=== PATIENT | male | born 1985 | race Caucasian/White ===

== ENCOUNTER → 2018-06-02 | Outpatient (CLI) | payer OTHER | LOC: FIMAGING 07:52 | PROVIDERS: ATTEND Internal Medicine Infectious Disease | DX: I87.011 Postthrombotic syndrome with ulcer of right lower extremity (principal); L97.811 Non-pressure chronic ulcer of other part of right lower leg limited to breakdown of skin; I87.9 Disorder of vein, unspecified; D68.51 Activated protein C resistance ==

== ENCOUNTER → 2018-12-21 | Outpatient (CLI) | payer OTHER | LOC: FIMAGING 16:25 | PROVIDERS: ATTEND Surgery | DX: I82.432 Acute embolism and thrombosis of left popliteal vein (principal); I82.812 Embolism and thrombosis of superficial veins of left lower extremity; D68.51 Activated protein C resistance ==